=== PATIENT | female | born 1990 | race Asian ===

== ENCOUNTER 2022-07-13 11:30 | Inpatient (IN) | payer OTHER ==
[2022-07-12 15:44] VITALS: BMI 31.1
[2022-07-12 15:48] LABS: BASO % 0.2 % (0-2.0); EOS % 2.2 % (0-4.5); HEMATOCRIT 37.2 % (32.4-45.2); HEMOGLOBIN 12.8 GM/dL (10.7-15.3); LYMPH % 19.7 % (8-40); MCH 25.7 pg (25.7-33.7); MCHC 34.2 g/dl (32.0-36.0); MEAN CELL VOLUME 74.9 fl (80-96); NEUT % 70.9 % (42.8-82.8); PLATELET COUNT 289 10^3/uL (134-434); RBC 4.97 M/mm3 (3.60-5.2); WHITE BLOOD COUNT 10.6 K/mm3 (4.0-10.0)
[2022-07-12 15:56] LABS: INR 0.97 (0.83-1.09); PROTHROMBIN TIME (PATIENT) 11.2 SEC (9.7-13.0)
[2022-07-12 15:59] LABS: ACTIVATED PTT 27.7 SECONDS (25.2-36.5)
[2022-07-12] MEDS: ELECTROLYTE-148 SOLN 1,000 ML IV SCH (16:00)
[2022-07-12 16:15] LABS: CALCIUM 8.7 mg/dL (8.5-10.1); POTASSIUM 3.9 mmol/L (3.5-5.1)
[2022-07-12 16:17] LABS: BLOOD UREA NITROGEN 8.4 mg/dL (7-18)
[2022-07-12 16:19] LABS: CREATININE 0.5 mg/dL (0.55-1.3)
[2022-07-12 17:05] LABS: ANISOCYTOSIS 2+; MACROCYTOSIS 0
[2022-07-12 17:10] LABS: HIV INTERPRETATION NEGATIVE (NEGATIVE)
[2022-07-13] MEDS: ELECTROLYTE-148 SOLN 1,000 ML IV SCH ×3 (03:35→19:58)
[~2022-07-13 11:30] MED LIST: DINOPROSTONE 10 MG VAGINAL SUPPOSITORY VG ONE; OXYTOCIN 30 UNITS in 0.9% NS 30 UNIT/500 ML INFUS.BAG IVPB ONE; OXYTOCIN 30 UNITS in 0.9% NS 30 UNIT/500 ML INFUS.BAG IVPB SCH
[2022-07-13] MEDS ORDERED: FENTANYL/BUPIVACAINE/NS/PF - PCEA - 50 ML DISP.SYRIN EP ONE ×4 (11:40→22:26)
[2022-07-13] MEDS ORDERED: FENTANYL CITRATE/PF 50 MCG/ML VIAL ONE ×2 (11:46→21:23)
[2022-07-13] MEDS ORDERED: BUPIVACAINE HCL/PF 0.25% (2.5MG/ML) 10 ML VIAL ONE ×3 (11:47→21:23)
[2022-07-13] MEDS ORDERED: LIDO 2%/EPI 1:200000 PRESRVFRE (20 ML SDVIAL) ONE (11:47)
[2022-07-13] MEDS: FENTANYL/BUPIVACAINE/NS/PF - PCEA - 50 ML DISP.SYRIN EP SCH ×3 (12:10→19:28)
[2022-07-13] MEDS ORDERED: NALOXONE HCL 0.4 MG/ML VIAL IVPUSH PRN (12:15)
[2022-07-13] MEDS ORDERED: OXYTOCIN 20 UNITS in 0.9% NS 20 UNIT/1,000 ML INFUS.BAG IV ONE (22:03)
[2022-07-13] MEDS ORDERED: DEXTROSE 5%-WATER - 1,000 ML IV SCH (22:15)
[2022-07-14 00:15] VITALS: RESP 18
[2022-07-14] MEDS ORDERED: METHYLERGONOVINE MALEATE 0.2 MG/1 ML AMP IM PRN (02:03)
[2022-07-14] MEDS ORDERED: oxyCODONE HCL 5 MG TABLET PO PRN (02:03)
[2022-07-14] MEDS ORDERED: BISACODYL 10 MG SUPP.RECT RC PRN (02:03)
[2022-07-14] MEDS ORDERED: WITCH HAZEL 50% (TUCKS) 40 PAD/JAR PAD TP PRN (02:03)
[2022-07-14] MEDS ORDERED: BENZOCAINE 28 GM HEMORRHOIDAL OINTMENT TP PRN (02:03)
[2022-07-14] MEDS ORDERED: BENZOCAINE 20% 57 GM BOTTLE TP PRN (02:03)
[2022-07-14] MEDS ORDERED: OXYTOCIN 20 UNITS in 0.9% NS 20 UNIT/1,000 ML INFUS.BAG IV SCH (02:15)
[2022-07-14] MEDS: IBUPROFEN 600 MG TABLET (FP) PO PRN ×2 (06:43→18:57)
[2022-07-14] MEDS: ACETAMINOPHEN 325 MG TABLET (FP) PO PRN (20:27)
[2022-07-15 07:19] LABS: BASO % 0.2 % (0-2.0); EOS % 2.9 % (0-4.5); HEMATOCRIT 31.9 % (32.4-45.2); HEMOGLOBIN 10.7 GM/dL (10.7-15.3); LYMPH % 28.4 % (8-40); MCH 25.4 pg (25.7-33.7); MCHC 33.7 g/dl (32.0-36.0); MEAN CELL VOLUME 75.5 fl (80-96); MEAN PLT VOLUME 6.8 fl (7.5-11.1); MONO % 5.2 % (3.8-10.2); NEUT % 63.3 % (42.8-82.8); PLATELET COUNT 253 10^3/uL (134-434); RBC 4.22 M/mm3 (3.60-5.2); RDW 15.5 % (11.6-15.6); WHITE BLOOD COUNT 16.7 K/mm3 (4.0-10.0)
[2022-07-15] MEDS: IBUPROFEN 600 MG TABLET (FP) PO PRN ×2 (11:13→18:54)
[2022-07-15] MEDS ORDERED: SENNOSIDES/DOCUSATE COMBO (SENNA PLUS) TABLET (UD) PO PRN (22:00)
[2022-07-15 22:30] VITALS: TEMP 98
[2022-07-15] MEDS: ACETAMINOPHEN 325 MG TABLET (FP) PO PRN (23:08)
[2022-07-16] MEDS: IBUPROFEN 600 MG TABLET (FP) PO PRN (02:48)
[2022-07-16 09:12] VITALS: BP 131/75; PULSE 80
== END 2022-07-16 12:10 | disposition home or self-care (01) | DRG 807 ==
LOC: J3W 07-14 03:11
PROVIDERS: ADMIT Obstetrics & Gynecology; ATTEND Obstetrics & Gynecology
PROC: 0KQM0ZZ Repair Perineum Muscle, Open Approach (ICD-10-PCS; principal; 2022-07-14)
PROC: 10E0XZZ Delivery of Products of Conception, External Approach (ICD-10-PCS; 2022-07-14)
DX: O24.420 Gestational diabetes mellitus in childbirth, diet controlled (principal); Z37.0 Single live birth; O69.81X0 Labor and delivery complicated by cord around neck, without compression, not applicable or unspecified; O70.1 Second degree perineal laceration during delivery; Z3A.39 39 weeks gestation of pregnancy
CPT/HCPCS: 36415; 80048; 82962; 85025; 85610; 85730; 86780; 86850; 86900; 86901; 87389; C9803-CS; U0003; U0005